=== PATIENT | male | born 1955 | race Caucasian/White ===

== ENCOUNTER 2023-09-26 08:35 | Outpatient (CLI) | payer MEDICARE, OTHER ==
[2023-09-26] MEDS ORDERED: Iopamidol 300 61% 100 ML VIAL FS ONE (11:18)
== END 2023-09-26 08:36 | disposition home or self-care (01) ==
LOC: CSHCT 08:35
PROVIDERS: ATTEND Specialist
DX: R59.0 Localized enlarged lymph nodes (principal); N32.89 Other specified disorders of bladder; N40.0 Benign prostatic hyperplasia without lower urinary tract symptoms
CPT/HCPCS: 72193; 82565; Q9967

== ENCOUNTER 2023-09-28 00:40 | Emergency (ER) | payer MEDICARE, OTHER ==
[2023-09-28] MEDS ORDERED: Oxymetazoline HCl 0.05% ( 15 ML ) ONE (01:03)
[2023-09-28] MEDS ORDERED: Bacitracin 1 PK ONE (01:10)
[2023-09-28] MEDS ORDERED: Lorazepam 2 MG/ML VIAL ONE (01:28)
[2023-09-28 01:37] LABS: #Basophils 0.1 10x3/uL (0.0-0.2); #Eosinphils 0.4 10x3/uL (0.0-0.5); #Monocytes 1.5 10x3/uL (0.0-1.1); #Neutrophils 6.5 10x3/uL (1.5-8.4); %Basophils 0.7 % (0.0-2.0); %Lymphocytes 30.2 % (18.0-47.0); %Neutrophils 53.7 % (40.0-75.0); Hematocrit 43.9 % (38.8-50.0); Hemoglobin 14.7 g/dL (13.5-17.5); Mean Corpuscular HGB CONC 33.5 g/dL (32.0-36.0); Mean Corpuscular Hemoglobin 32.2 pg (27.0-33.0); Mean Corpuscular Volume 96.3 fl (81.2-95.1); Mean Platelet Volume 10.1 fl (7.4-10.4); Platelet Count 255 10x3/uL (150-450); RBC Distribution Width 13.6 % (11.5-14.5); Red Blood Cell (RBC) Count 4.56 10x6/uL (4.32-5.72); White Blood Cell (WBC) Count 12.2 10x3/uL (3.5-10.5)
[2023-09-28 01:43] LABS: INR-International Normal Ratio 1.1; PTT 28.2 sec (22.0-33.0); Prothrombin Time 11.9 sec (9.5-12.1)
[2023-09-28] MEDS ORDERED: Enalaprilat Dihydrate 1.25 MG/ML VIAL SLOW IVP SCH (01:45)
[2023-09-28 01:51] LABS: ALT (SGPT) 17 U/L (8-55); AST (SGOT) 20 U/L (5-34); Alkaline Phosphatase 40 U/L (40-110); Anion Gap 15 mmol/L (10-20); BUN (Urea Nitrogen) 17 mg/dL (8.4-25.7); Bilirubin, Total 0.8 mg/dL (0.2-1.2); Calc. Creatinine Clearance 0 mL/min (70-130); Calcium 8.9 mg/dL (7.8-10.44); Carbon Dioxide 22 mmol/L (23-31); Chloride 105 mmol/L (98-107); Estimated GFR 77; Globulin 3.1 g/dL (2.4-3.5); Glucose 111 mg/dL (80-115); Potassium 3.5 mmol/L (3.5-5.1); Protein, Total 7.1 g/dL (5.8-8.1); Sodium 138 mmol/L (136-145)
[2023-09-28 01:52] LABS: Troponin I Less than 0.010 ng/mL (< 0.028)
== END 2023-09-28 03:17 | disposition home or self-care (01) ==
LOC: CSHERS 00:40
DX: R04.0 Epistaxis (principal); I11.0 Hypertensive heart disease with heart failure; I50.9 Heart failure, unspecified; F17.210 Nicotine dependence, cigarettes, uncomplicated
CPT/HCPCS: 80053; 84484; 85025; 85610; 85730; 96374; 96375; J2060

== ENCOUNTER 2024-08-25 12:05 | Outpatient (CLI) | payer MEDICARE, OTHER | END 2024-08-25 12:06 | disposition home or self-care (01) | LOC: CSHWCC 12:05 | PROVIDERS: ATTEND Nurse Practitioner Family | DX: I87.331 Chronic venous hypertension (idiopathic) with ulcer and inflammation of right lower extremity (principal); L97.812 Non-pressure chronic ulcer of other part of right lower leg with fat layer exposed; I50.22 Chronic systolic (congestive) heart failure | CPT/HCPCS: 99213; G0463 ==

== ENCOUNTER 2024-09-01 11:29 | Outpatient (CLI) | payer MEDICARE, OTHER | END 2024-09-01 11:30 | disposition home or self-care (01) | LOC: CSHWCC 11:29 | PROVIDERS: ATTEND Nurse Practitioner Family | DX: I87.331 Chronic venous hypertension (idiopathic) with ulcer and inflammation of right lower extremity (principal); L97.812 Non-pressure chronic ulcer of other part of right lower leg with fat layer exposed; I50.22 Chronic systolic (congestive) heart failure | CPT/HCPCS: 99212; G0463 ==